=== PATIENT | male | born 1960 | race Caucasian/White ===

== ENCOUNTER 2021-01-09 08:06 | Outpatient (CLI) | payer SELFPAY ==
--- NOTE | 2021-01-09 08:00 | RT.EKG_ITS ---
APPROVED REPORT Exam: Resting ECG Reason for Exam: af Patient Location: O HR:105 bpm ECG Measurements Heart Rate 105 AXIS MN [id number] P [id number] QRSd 91 QRS 25 QT 332 T 54 QTc 439 Conclusion Atrial fibrillation...V-rate 86-132, irreg A-activity Borderline low voltage, extremity leads...all extremity leads <0.6mV
== END 2021-01-09 08:07 | disposition home or self-care (01) ==
LOC: DI.CARD 08:07
PROVIDERS: Visit Provider Internal Medicine Cardiovascular Disease
DX: I48.20 Chronic atrial fibrillation, unspecified (principal)
CPT/HCPCS: 93010

== ENCOUNTER 2021-01-23 00:38 | Outpatient (CLI) | payer BC, SELFPAY ==
--- NOTE | 2021-01-23 | DI.MRI_ITS ---
Exam(s) MR LUMBAR SPINE WO EXAM: MR LUMBAR SPINE WO CLINICAL HISTORY: LUMBAR STENOSIS WITHOUT NEUROGENIC CLAUDICATION,M49.061. TECHNIQUE: Multiplanar multisequence MRI of the Lumbar spine was performed. COMPARISON: There are no plain films available at the time of this MRI interpretation. There may be transitional anatomy here. FINDINGS: Conus medullaris is at normal level. There is no evidence of conus mass nor subjacent clumping of in trathecal nerve roots to suggest arachnoiditis. The distal thecal sac appears unremarkable.There is no evidence of Tarlov intrasacral cysts nor other significant findings within the sacral canal Bones:There are no fractures nor ominous osseous lesions in the lumbar vertebral bodies and visualize d sacrum. There are 2 intraosseous hemangiomas in the L1 vertebral body, the larger of the 2 measuri ng 11 x 10 millimeters and located posteriorly. There are no ominous osseous lesions. With respect to the individual levels... T12-L1: Unremarkable L1-2: Anterior osseous lipping. Normal disc height and signal. No disc herniation nor central canal stenosis.No foraminal stenosis L2-3: Anterior osseous lipping. Normal disc height and signal. No disc herniation nor central canal stenosis.No foraminal stenosis.No facet arthropathy. L3-4: Normal disc height. No disc herniation or central canal stenosis.No foraminal stenosis.No face t arthropathy. L4-5: Normal disc height and hydration signal. No disc herniation. No canal stenosis. No significa nt foraminal stenosis. No significant facet arthropathy. L5-S1: Mild decreased disc height and signal. There is relatively symmetrical posterior annular bulg ing at this level. No prominent disc herniation or central canal stenosis. No significant foraminal stenosis. There are mild degenerative changes in the facet joints, right more than left. No ligame ntum flavum hypertrophy. Soft tissues: paraspinal soft tissues appear unremarkable. IMPRESSION: 1. At L5-S1 level there is mild disc height loss and relatively symmetrical posterior annular bulging . There is no dominant disc herniation at this level nor central spinal canal stenosis nor foraminal stenosis. Some degenerative changes noted in the facet joints at this level, slightly more so on t he right side. 2. No other significant disc findings. No central nor foraminal stenosis. 3. Two small benign meningiomas are noted in the L1 vertebral body. DATA REPOSITORY:
--- OUTSIDE RECORDS SUMMARY | 2021-01-23 00:42 | XMS_ITS ---
:1960 Author Care Team Providers Name Role Phone MERT ESPINOZA MD General Surgeon [phone] TAWNYA SARMIENTO MD Primary Care Provider [phone] JOE GRIMES [employer] [phone] ALHAJI BARNES [employer] Delivery Checker [phone] Allergies Code Code System Name Reaction Severity Status Onset 67009 RxNorm Sulfamethoxazole Flushing ? Active ? Itching ? Active ? 28003 RxNorm Terbinafine Itching ? Active ? Medications Name Status Start Date Stop Date ? ? 5-HTP 100 mg capsule Completed 12/29/2012 12/29/2012 2 (two) Capsule: at bedtime amoxicillin 875 mg-potassium Completed ? clavulanate 125 mg tablet buspirone 5 mg tablet Active ? Not availa ble cephalexin 500 mg capsule Completed ? 2017 citalopram 10 mg tablet Completed 08/23/2016 02/14/20 17 1 (one) Tablet: daily citalopram 20 mg tablet Completed ? 12/18/19 18 clobetasol 0.05 % topical Active ? Not av ailable cream clonazepam 1 mg tablet Completed 08/02/2015 7 1/2-1 Tablet: Twice daily as needed cyclobenzaprine 10 mg tablet Active ? Not available duloxetine 60 mg Active ? Not available capsule,delayed release etodolac 500 mg tablet Active ? Not avail able fluoxetine 20 mg tablet Completed 02/22/2015 02/23/20 15 1 (one) Tablet: takes only a few times per week gabapentin 300 mg capsule Active ? Not av ailable itraconazole 100 mg capsule Active ? Not available Jublia 10 % topical solution Active ? Not available with applicator magnesium citrate 100 mg tablet Completed 04/13/2013 04/13/2013 1 Tablet: qd - daily multivitamin capsule Completed 04/13/2013 01/12/2016 1 (one) Tablet: daily mupirocin 2 % topical ointment Active ? N ot available nortriptyline 10 mg capsule Active ? Not available omega 3s 300 eh-xhd-bot-fish oil 1,000 mg capsule,delayed re lease Completed 10/07/2014 10/07/2014 3 (three) Capsule: daily prednisone 50 mg tablet Completed 12/18/2012 12/19/19 13 1 (one) Tablet: daily silver sulfadiazine 1 % Completed ? 02/11/20 18 topical cream sulfamethoxazole 800 Completed ? 10/29/2017 mg-trimethoprim 160 mg tablet terbinafine HCl 250 mg tablet Completed ? trazodone 50 mg tablet Completed 01/08/2013 3 1 Tablet: at bedtime venlafaxine ER 37.5 mg capsule,extended release 24 hr Completed 01/30/2013 01/30/2013 1 Capsule ER 24HR: daily Viagra 50 mg tablet Completed 09/13/2015 01/12/2016 1 (one) Tablet: 1/2 hr to 4 hr prior to intercourse Vitamins B Complex tablet Completed 04/13/20132013 1 Tablet: daily Wellbutrin XL 150 mg 24 hr tablet, extended release Completed 02/09/2013 02/09/2013 1 Tablet ER 24HR: daily zolpidem 10 mg tablet Active ? Not availa ble Problems Name Status Onset Date Source ? Onychomycosis of Toenails Active 09/18/2017 ? Ingrowing Toenail Active 09/18/2017 ? Chronic Low Back Pain Active 03/18/2018 ? Altered Bowel Function Active 04/05/2018 ? Overweight Unknown ? History Generalized Anxiety Disorder Active ? His tory Depressive Disorder Active ? History Insomnia Active ? History Hearing Loss of Right Ear Active ? Histor y Hip Pain Active ? History Low Back Pain Unknown ? History Sciatica Active ? History Backache Unknown ? History Plantar Fascial Fibromatosis Active ? His tory Lack of Energy Active ? History Dysphagia Active ? History Reduced Libido Active ? History Active Immunization Unknown ? History Administration of Diphtheria and Unknown ? History Tetanus Vaccine Adult Health Examination Active ? History At Risk - Finding Unknown ? History Otalgia of Right Ear Unknown ? History Impotence of Organic Origin Active ? Hist ory Long-term Current Use of Drug Therapy Unknown ? History Procedure by Method Unknown ? History Procedures Date Name Performed by ? 04/16/2018 Colonoscopy Information not avai lable Notes: normal-f/u 10 years 02/25/1989 Vasectomy Information not avai lable Results Lab Results Date Name Specimen Result Interpretation Description Value Range Status Address ? 10/29/2018 Thyroglobulin Ab, S - Thyroglobulin <1.8 < 4.0 Final [place] Serum Antibody, S IU/mL IU/mL [facility] L ab (Internal) : [address] ? ? S High Thyroglobulin, 8.4 ? Final N orth Tumor Marker, S NG/mL [facility] L ab (Internal) : [address] ? ? S - Thyroglobulin see ? Final No rth Interpretation below [facility] L ab (Internal) : [address] 10/29/2018 Immunofixation + S - Total Protein 6.3 6. 3-8. Final [place] Protein g/dL 2 g/dL [facility] Electrophoresis [facility] Lab Free Light (Inter nal): Chains, Serum [address] ? ? S - Albumin 63.4 % 55.8-6 Final [place] 6.1 % [facility] L ab (Internal) : [address] ? ? S - Alpha 1 3.4 % 2.9-4. Final [place] 9 % [facility] L ab (Internal) : [address] ? ? S - Alpha 2 8.0 % 7.1-11 Final [place] .8 % [facility] L ab (Internal) : [address] ? ? S - Beta 11.4 % 8.4-13 Final [place] .1 % [facility] L ab (Internal) : [address] ? ? S - Gamma 13.8 % 11.1-1 Final [place] 8.8 % [facility] ab (Internal) : [address] ? ? S - Comments see ? Final [place] below [facility] L ab (Internal) : [address] ? ? S - Immunotyping, see ? Final No rth Serum below [facility] L ab (Internal) : [address] 10/29/2018 PSA, Serum or S - PSA, Total 0.5 0.0-4. F inal [place] Plasma NG/mL 0 [facility] NG/mL Hospital L ab (Internal) : [address] 10/29/2018 CBC W/ Auto Diff BLD - Wbc 6.1 5.0-10 Fin al [place] 10*3/u .0 [facility] L 10*3/u Hospital L ab L (Internal) : [address] ? ? BLD Low Rbc 4.43 4.60-6 Final [place] 10*6/u .00 [facility] L 10*6/u Hospital L ab L (Internal) : [address] ? ? BLD Low Hgb 13.9 14.0-1 Final [place] g/dL 8.0 [facility] g/dL Hospital L ab (Internal) : [address] ? ? BLD Low Hct 37.6 % 41.0-5 Final [place] 1.0 % [facility] (Internal) : [address] ? ? BLD - Mcv 84.9 80.0-9 Final [place] fL 6.0 fL [facility] (Internal) : [address] dionicio ? ? BLD - Mch 31.4 26.0-3 Final [place] pg 2.0 pg [facility] (Internal) : [address] ? ? BLD High Mchc 37.0 31.0-3 Final [place] g/dL 5.0 Country g/dL Hospital L ab (Internal) : [address] ? ? BLD - Rdw 11.6 % 11.5-1 Final [place] 4.5 % [facility] (Internal) : [address] ? ? BLD - Plt 194 130-45 Final [place] 10*3/u 0 [facility] L 10*3/u Hospital L ab L (Internal) : [address] ? ? BLD - Anc 2.66 ? Final [place] 10*3/u [facility] L [facility] L ab (Internal) : [address] ? ? BLD - Neutro 43.5 % 40.0-7 Final [place] 5.0 % [facility] (Internal) : [address] ? ? BLD - Lymph 40.7 % 20.0-5 Final [place] 0.0 % [facility] (Internal) : [address] ? ? BLD High Bland 11.3 % 2.0-10 Final [place] .0 % [facility] (Internal) : [address] ? ? BLD - Eos 3.3 % 1.0-6. Final [place] 0 % [facility] (Internal) : [address] ? ? BLD - Baso 1.0 % 0.0-1. Final [place] 0 % [facility] (Internal) : [address] ? ? BLD - Ig 0.2 % 0.0-0. Final [place] 9 % [facility] (Internal) : [address] 10/23/2018 PSA, Serum or S - PSA, Total 0.4 0.0-4. F inal [place] Plasma NG/mL 0 [facility] NG/mL Hospital L ab (Internal) : [address] [place] 10/23/2018 CBC W/ Auto Diff BLD - Wbc 6.0 5.0-10 Fin al [place] 10*3/u .0 [facility] L 10*3/u Hospital L ab L (Internal) : [address] ? ? BLD Low Rbc 4.39 4.60-6 [facility] 10*6/u .00 [facility] L 10*6/u Hospital L ab L (Internal) : [address] ? ? BLD Low Hgb 13.7 14.0-1 Final [place] g/dL 8.0 [facility] g/dL Hospital L ab (Internal) : [address] ? ? BLD Low Hct 37.6 % 41.0-5 Final [place] 1.0 % [facility] L ab (Internal) : [address] ? ? BLD - Mcv 85.6 80.0-9 Final [place] fL 6.0 fL [facility] L [facility] (Internal) : [address] ? ? BLD - Mch 31.2 26.0-3 Final [place] pg 2.0 pg [facility] (Internal) : [address] ? ? BLD High Mchc 36.4 31.0-3 Final [place] g/dL 5.0 [facility] g/dL Hospital L ab (Internal) : [address] ? ? BLD - Rdw 11.7 % 11.5-1 Final [place] 4.5 % [facility] (Internal) : [address] ? ? BLD - Plt 205 130-45 Final [place] 10*3/u 0 [facility] L 10*3/u Hospital L ab L (Internal) : [address] ? ? BLD - Anc 2.82 ? Final [place] 10*3/u [facility] L [facility] L ab (Internal) : [address] ? ? BLD - Neutro 47.1 % 40.0-7 Final [place] 5.0 % [facility] (Internal) : [address] ? ? BLD - Lymph 36.4 % 20.0-5 Final [place] 0.0 % [facility] (Internal) : [address] ? ? BLD High Bland 11.9 % 2.0-10 Final [place] .0 % [facility] (Internal) : [address] ? ? BLD - Eos 3.3 % 1.0-6. Final [place] 0 % [facility] (Internal) : [address] ? ? BLD - Baso 1.0 % 0.0-1. Final [place] 0 % [facility] (Internal) : [address] ? ? BLD - Ig 0.3 % 0.0-0. Final [place] 9 % [facility] (Internal) : [address] 10/21/2018 CMP, Serum or S High g/r 120 74-106 Final [place] Plasma mg/dL mg/dL [facility] (Internal) : [address] ? ? S - Bun 13 9-20 Final [place] mg/dL mg/dL [facility] (Internal) : [address] ? ? S Low Crea 0.60 0.66-1 Final [place] mg/dL .25 [facility] mg/dL Hospital L ab (Internal) : [address] ? ? S - Ca 8.7 8.4-10 Final [place] mg/dL .2 [facility] mg/dL [facility] L ab (Internal) : [address] ? ? S Low Na 130 137-14 Final [place] mmol/L 5 [facility] mmol/L Hospital L ab (Internal) : [address] ? ? S - K 4.1 3.5-5. Final [place] mmol/L 1 [facility] mmol/L Hospital L ab (Internal) : [address] ? ? S Low Cl 97 98-107 Final [place] mmol/L mmol/L [facility] (Internal) : [address] ? ? S - Tco2 24.0 22.0-3 Final [place] mmol/L 0.0 [facility] mmol/L Hospital L ab (Internal) : [address] ? ? S - Tp 6.7 6.3-8. Final [place] g/dL 2 g/dL [facility] (Internal) : [address] ? ? S - Alb 4.0 3.5-5. Final [place] g/dL 0 g/dL [facility] (Internal) : [address] ? ? S - Tbil 0.3 0.2-1. Final [place] mg/dL 3 [facility] mg/dL Hospital L ab (Internal) : [address] ? ? S - Alp 69 U/L 38-126 Final [place] U/L [facility] (Internal) : [address] ? ? S - Alt (Sgpt) 31 U/L 21-72 Final [place] U/L [facility] (Internal) : [address] ? ? S - Ast (Sgot) 25 U/L 17-59 Final [place] U/L [facility] (Internal) : [address] 09/27/2018 Lipid Panel, S - Chol 141 50-200 Final [place] Serum mg/dL mg/dL [facility] (Internal) : [address] ? ? S - Trig 40 10-150 Final [place] mg/dL mg/dL [facility] (Internal) : [address] ? ? S High Hdl 80 40-60 Final [place] mg/dL mg/dL [facility] (Internal) : [address] ? ? S - Ldl 53 0-130 Final [place] mg/dL mg/dL [facility] (Internal) : [address] 02/10/2018 Glucose, Serum or S - g/r 97 74-106 Fi nal [place] Plasma mg/dL mg/dL [facility] (Internal) : [address] 02/10/2018 CBC W/ Auto Diff BLD - Wbc 5.8 5.0-10 Fin al [place] 10*3/u .0 [facility] L 10*3/u Hospital L ab L (Internal) : [address] ? ? BLD Low Rbc 4.55 4.60-6 Final [place] 10*6/u .00 [facility] L 10*6/u Hospital L ab L (Internal) : [address] ? ? BLD - Hgb 14.2 14.0-1 Final [place] g/dL 8.0 [facility] g/dL Hospital L ab (Internal) : [address] ? ? BLD Low Hct 40.2 % 41.0-5 Final [place] 1.0 % [facility] (Internal) : [address] ? ? BLD - Mcv 88.4 80.0-9 Final [place] fL 6.0 fL [facility] (Internal) : [address] ? ? BLD - Mch 31.2 26.0-3 Final [place] pg 2.0 pg [facility] (Internal) : [address] ? ? BLD High Mchc 35.3 31.0-3 Final [place] g/dL 5.0 [facility] g/dL Hospital L ab (Internal) : [address] ? ? BLD - Rdw 11.9 % 11.5-1 Final [place] 4.5 % [facility] (Internal) : [address] ? ? BLD - Plt 210 130-45 Final [place] 10*3/u 0 [facility] L 10*3/u Hospital L ab L (Internal) : [address] ? ? BLD - Anc 3.31 ? Final [place] 10*3/u [facility] L [facility] ab (Internal) : [address] ? ? BLD - Neutro 57.0 % 40.0-7 Final [place] 5.0 % [facility] (Internal) : [address] ? ? BLD - Lymph 30.1 % 20.0-5 Final [place] 0.0 % [facility] (Internal) : [address] ? ? BLD High Bland 10.3 % 2.0-10 Final [place] .0 % [facility] (Internal) : [address] ? ? BLD - Eos 1.5 % 1.0-6. Final [place] 0 % [facility] (Internal) : [address] ? ? BLD - Baso 0.9 % 0.0-1. Final [place] 0 % [facility] (Internal) : [address] [place] ? ? BLD - Ig 0.2 % 0.0-0. Final [place] 9 % [facility] (Internal) : [address] , [place] Past Encounters 02/29/2020 Pain in Right Lower Limb; Strain of Musc le And/or Tendon of Lower Leg; Injury of Achilles Tendon Kevan Jessica, PT: [address] [phone], Ph. 01/28/2020 Pain in Right Lower Limb; Strain of Musc le And/or Tendon of Lower Leg; Injury of Achilles Tendon Kevan Jessica, PT: [address] [phone], Ph. 01/11/2020 Pain in Right Lower Limb; Strain of Musc le And/or Tendon of Lower Leg; Injury of Achilles Tendon Kevan Jessica, PT: [address] [place] [phone], Ph. 01/04/2020 Pain in Right Lower Limb; Strain of Musc le And/or Tendon of Lower Leg; Injury of Achilles Tendon Kevan Jessica, PT: [address] [phone], Ph. 12/28/2019 Pain in Right Lower Limb; Strain of Musc le And/or Tendon of Lower Leg; Injury of Achilles Tendon Kevan Jessica, PT: [address] [place] [phone], Ph. 12/21/2019 Pain in Right Lower Limb; Strain of Musc le And/or Tendon of Lower Leg; Injury of Achilles Tendon Kevan Jessica, PT: [address] [phone], Ph. 12/14/2019 Pain in Right Lower Limb; Strain of Musc le And/or Tendon of Lower Leg; Injury of Achilles Tendon Kevan Jessica, PT: [address] [place] [phone], Ph. 12/07/2019 Pain in Right Lower Limb; Strain of Musc le And/or Tendon of Lower Leg; Injury of Achilles Tendon Kevan Jessica, PT: [address] [place] [phone], Ph. 11/30/2019 Pain in Right Lower Limb; Strain of Musc le And/or Tendon of Lower Leg; Injury of Achilles Tendon Kevan Jessica, PT: [address] [place] [phone], Ph. Social History Tobacco Smoking Status Former Smoker Notes: quit in 1981, started at age 14, approx. 0.5ppd Vaccine List Vaccine Type COVID-19 vaccine, vector-nr, rS-Ad26, PF , 0.5 mL (Gro) 05/25/2020 Tdap 10/27/2011 Plan of Care Reminders Provider Appointments None ? ? recorded. Lab None ? ? recorded. Referral None ? ? recorded. Procedures None ? ? recorded. Surgeries None ? ? recorded. Imaging None ? ? recorded. Vitals 08/29/2018 02:20PM Acute 20 Height Weight BMI Blood Pressure 170.18 cm 71.4 kg 24.7 kg/m2 122/80 mm[Hg] 08/04/2018 05:00PM Acute 20 Height Weight BMI Blood Pressure 170.18 cm 73.03 kg 25.2 kg/m2 129/78 mm[Hg] 06/03/2018 09:40AM CPE 40 Height Weight BMI Blood Pressure 170.18 cm 72.83 kg 25.1 kg/m2 124/70 mm[Hg] 04/04/2018 03:00PM Any 40 Height Weight BMI Blood Pressure 170.18 cm 73.03 kg 25.2 kg/m2 100/60 mm[Hg] 03/18/2018 09:20AM Any 40 Height Weight BMI Blood Pressure 170.18 cm 73.48 kg 25.4 kg/m2 118/72 mm[Hg] 02/10/2018 12:40PM Acute 40 Height Weight BMI Blood Pressure 170.18 cm 74.12 kg 25.6 kg/m2 122/84 mm[Hg] 12/17/2017 04:20PM Follow Up 40 Height Weight BMI Blood Pressure 170.18 cm 76.88 kg 26.5 kg/m2 138/84 mm[Hg] 10/29/2017 05:00PM Follow Up 20 Height Weight BMI Blood Pressure 170.18 cm 74.93 kg 25.9 kg/m2 122/84 mm[Hg] 09/18/2017 05:20PM Acute 40 Height Weight BMI Blood Pressure 170.18 cm 77.11 kg 26.6 kg/m2 118/68 mm[Hg] 07/16/2017 11:40AM Acute 20 Height Weight BMI Blood Pressure 170.18 cm 74.53 kg 25.7 kg/m2 118/72 mm[Hg] 02/13/2017 Weight Blood Pressure 74.84 kg 130/70 mm[Hg] 08/23/2016 Weight Blood Pressure 75.7 kg (1) 118/72 mm[Hg] (2) 122/76 mm[Hg] 07/17/2016 Weight Blood Pressure 77.34 kg 130/80 mm[Hg] 02/13/2016 Height Weight Blood Pressure 168.28 cm 78.16 kg 126/72 mm[Hg] 01/12/2016 Weight Blood Pressure 79.33 kg 120/80 mm[Hg] 09/13/2015 Weight Blood Pressure 74.16 kg 116/72 mm[Hg] 08/02/2015 Height Weight Blood Pressure 172.09 cm 75.21 kg 130/76 mm[Hg] 07/05/2015 Weight Blood Pressure 77.93 kg 130/80 mm[Hg] 02/22/2015 Height Weight Blood Pressure 172.09 cm 78.2 kg 120/80 mm[Hg] 01/18/2015 Height Weight Blood Pressure 167.64 cm 76.93 kg 136/80 mm[Hg] 12/21/2014 Weight Blood Pressure 74.16 kg 128/72 mm[Hg] 11/02/2014 Height Weight Blood Pressure 167.64 cm 73.6 kg 126/74 mm[Hg] 10/07/2014 Height Weight Blood Pressure 167.64 cm 76.61 kg 138/76 mm[Hg] 03/09/2014 Weight Blood Pressure 75.84 kg 120/76 mm[Hg] 04/13/2013 Weight Blood Pressure 75.75 kg 136/80 mm[Hg] 02/09/2013 Height Weight Blood Pressure 168.28 cm 74.48 kg 126/70 mm[Hg] 01/30/2013 Weight Blood Pressure 73.66 kg 114/62 mm[Hg] 01/20/2013 Height Weight Blood Pressure 169.55 cm 74.43 kg 122/66 mm[Hg] 01/08/2013 Weight Blood Pressure 73.53 kg 128/68 mm[Hg] 12/29/2012 Weight Blood Pressure 75.84 kg 130/82 mm[Hg] 12/25/2012 Weight Blood Pressure 71.99 kg 126/78 mm[Hg] 12/18/2012 Height Weight Blood Pressure 168.28 cm 71.99 kg 112/80 mm[Hg] 03/28/2005 Weight Blood Pressure 75.3 kg 118/84 mm[Hg] 10/16/2004 Weight Blood Pressure 75.3 kg 118/88 mm[Hg] 02/14/2004 Height Weight Blood Pressure 169.55 cm 80.51 kg 124/76 mm[Hg]
== END 2021-01-23 00:58 ==
PROVIDERS: PCP Internal Medicine; Visit Provider Neurological Surgery
DX: M48.07 Spinal stenosis, lumbosacral region (principal)
CPT/HCPCS: 72148

== ENCOUNTER 2021-06-17 11:05 | Emergency (ER) | payer MEDICAID, SELFPAY ==
[2021-06-17 11:08] VITALS: BP 154/92; PULSE 96; RESP 16; TEMP 36.8; O2SAT 100
--- NOTE | 2021-06-17 11:15 | DI.CT_ITS ---
Exam(s) CT HEAD WO EXAM: CT HEAD WO CLINICAL HISTORY: fall on apixaban. TECHNIQUE: Imaging Protocol: Axial computed tomography images with coronal and sagittal reformatted images were created and reviewed COMPARISON: CT CT PELVIC WO from 06/17/2021 FINDINGS: The ventricular system is normal in appearance. No evidence of acute intracranial hemorrhage, mass effect, or midline shift. The orbital structures are unremarkable. The temporal bone structures appear intact. Calvarium: Normal. Visualized Paranasal sinuses/Mastoids: Clear. IMPRESSION: Normal cranial CT. RADIATION DOSE DELIVERED: 1257.25 mGy.cm Total DLP 1257.25 mGy.cm Total DLP !Error CTDIvol DATA REPOSITORY: All CT scans at this facility are submitted to the National Radiology Data Registry (NRDR) Dose Index Registry (DIR) with the [employer] (A[employer]). RADIATION OPTIMIZATION: All CT scans at this facility use at least one of these dose optimization te chniques: automated exposure control; mA and/or kV adjustment per patient size (includes targeted exa ms where dose is matched to clinical indication); or iterative reconstruction.
--- NOTE | 2021-06-17 11:25 | DI.CT_ITS ---
Exam(s) CT PELVIC WO EXAM: CT PELVIC WO CLINICAL HISTORY: Fall right buttock and posterior pelvis pain TECHNIQUE: COMPARISON: No exams were available for comparison FINDINGS: CT examination of pelvis was performed without contrast administration. There is no free pelvic flui d. Urinary bladder appears intact. Visualized bowel appears intact. Normal appendix. Inferior mehreen es of the kidneys are visualized and appear normal. No soft tissue hematoma visible. There is no evidence of a hip or pelvis fracture. IMPRESSION: No evidence of acute injury. RADIATION DOSE DELIVERED: Total DLP !Error CTDIvol RADIATION OPTIMIZATION: All CT scans at this facility use at least one of these dose optimization te chniques: automated exposure control; mA and/or kV adjustment per patient size (includes targeted exa ms where dose is matched to clinical indication); or iterative reconstruction.
--- NOTE | 2021-06-17 11:38 | ED.GENADUL_ITS ---
Discharge Plan Disposition Patient Disposition: HOME Condition: Stable Discharge Details Clinical Impression: Contusion of leg, right, multiple sites Primary Care Provider: Rubi Gonzalez ED Provider: Abran Starr Home Meds and New Rx's Prescriptions: Continued duloxetine [Cymbalta] 60 mg capsule,delayed release(DR/EC) 60 mg PO DAILY 0RF gabapentin 300 mg capsule 300 mg PO TID 0RF cyclobenzaprine 10 mg tablet 10 mg PO TID PRN0RF Eliquis 5 mg tablet 5 mg PO BID Qty: 60 7RF Discharge Instructions Instructions: Contusion in Adults (ED) Additional Instructions: Please apply warm compresses to area of discomfort and you may take acetaminoph en as needed for pain control. Please take as directed on packaging. You may continue to perform weightbearing actions as tolerated and if you notice any new or significant worsening of symptoms please return immediately to the emergency department for reassessment If not improving over the next week please follow-up with primary care provider for reassessment Referrals: Rubi Gonzalez [Primary Care Provider] - 1 week Medical Decision Making Patient presenting to the emergency department for chief complaint of fall with right buttock and posterior pelvis pain. Does state that was an extremely hard fall and did hit his head but no loss of consciousness. Patient does have history of A. fib and is on apixaban. Physical exam shows tenderness to right buttock and posterior sacrum and mild tenderness to lateral hip. Exam is otherwise unremarkable. No significant or severe swelling no obvious ecchymosis, no signs of compartment syndrome/worrisome hematoma. Given that patient is anticoagulated we will plan on performing CT imaging of the head along with pelvis. Patient offered acetaminophen but is stating he does not need any pain medication Review of CT imaging shows no acute findings, no fracture, no obvious hematoma. Review of CT head also shows no acute worrisome findings. Patient recommended to use acetaminophen and warm compresses. HPI General Mode of arrival: ambulatory . Date/Time Provider Initiated Documentation: 06/17/21 11:06 . Limitations to Documentation: no limitations . Information obtained by: patient, RN notes reviewed and old records reviewed . History of Present Illness 61 year old M presents to the emergency department with the chief complaint of fall with right hip/buttock pain, described as severe, with intensity rated at 10. Quality is described as aching and sharp, and is localized to the pelvis and right. Patient reports no radiation. Patient started experiencing this day(s) (1) and it has been constant. improves with No relieving factors improve symptom(s), Movement worsens symptoms . Patient notes no other symptoms.. Patient did receive the following treatments prior to arrival, none Related Data Home Medications Medication Instructions Recorded Confirmed cyclobenzaprine 10 mg tablet 10 mg PO TID PRN 01/09/21 02/21/21 duloxetine 60 mg capsule,delayed 60 mg PO DAILY 01/09/21 02/21/21 release (Cymbalta) gabapentin 300 mg capsule 300 mg PO TID 01/09/21 02/21/21 apixaban 5 mg tablet (Eliquis) 5 mg PO BID #60 tab 02/14/21 06/17/21 Previous Rx's Medication Instructions Recorded apixaban 5 mg tablet (Eliquis) 5 mg PO BID #60 tab 02/14/21 Allergies Allergy/AdvReac Type Severity Reaction Status Date / Time No Known Allergies Allergy Unverified 06/17/21 11:12 General Stated Complaint: Nk/Back Pain JEANE: 4 Review of Systems Narrative: 8 systems reviewed and are unremarkable except for noted below Constitutional Constitutional: Denies frequent falls and Denies headache(s) ENT Ears, Nose, Mouth, and Throat: Denies headache(s) Cardiovascular Cardiovascular: Denies syncope Musculoskeletal Musculoskeletal: Reports as per HPI, Denies back pain, Reports limited range of motion, Denies loss of height, Denies numbness and Denies radiating pain into limb Neurologic Neurologic: Denies syncope, Denies frequent falls, Denies headache(s), Denies numbness and Denies paresthesias PFSH All Active Problems (Updated 06/17/21 @ 12:36 by Abran Starr NP) Contusion of leg, right, multiple sites (Acute) Atrial fibrillation (Chronic) Social History Smoking/Tobacco Use Status: Former Tobacco Use Smoking risk assessment performed?: Yes Alcohol Intake: current Alcohol Intake frequency: a few times a week Drug use: Never Substance use type: does not use Household members: spouse What is your relationship status?: Panel score (0-1 are the most socially isolated patients): 1 What type of physical activity do you participate in: bicycling Duration: 60-90 minutes/day Frequency: 3-4 times per week Do you feel safe at home: Yes Do you feel safe in your relationship?: Yes Exam Const General: cooperative, no acute distress and not ill appearing Orientation: alert, awake and oriented x3 HENMT Mouth: moist mucous membranes Resp Effort & Inspection: normal respiratory effort, able to speak in complete sentences and no respiratory distress Cardio Rate: regular rate Rhythm: abnormal rhythm irregularly irregular Back/Spine/Pelvis Back: No ecchymosis and No back tenderness Thoracic/Lumbar Spine: No paraspinal tenderness, No thoracic spinal tenderness and No lumbar spinal tenderness Pelvis: no pain with anterior-posterior compression, no pain with lateral compression, no buttock ecchymosis, buttock tenderness on the right, no unilateral elevation of iliac crest and no tenderness over symphysis pubis Sacrum: tenderness Coccyx: tenderness Skin General skin exam: no rashes or lesions noted Neuro General: patient alert, patient awake, patient oriented x3, tone normal, moves all extremities and no focal motor deficits Cognition: normal cognition Gait: antalgic Sensory Exam: no sensory deficits noted Course Vital Signs Vital signs: Vital Signs Temperature 36.8 C 06/17/21 11:08 Pulse 96 H 06/17/21 11:08 Respiratory Rate 16 06/17/21 11:08 Blood Pressure 154/92 H 06/17/21 11:08 Pulse Oximetry 100 06/17/21 11:08 Temperature 36.8 C 06/17/21 11:08 Temperature Source Skin 06/17/21 11:08 Pulse 96 H 06/17/21 11:08 Respiratory Rate 16 06/17/21 11:08 Blood Pressure 154/92 H 06/17/21 11:08 Blood Pressure Position Standing 06/17/21 11:08 Pulse Oximetry 100 06/17/21 11:08 Oxygen Delivery Method Room Air 06/17/21 11:08 Oxygen Flow Rate 0 06/17/21 11:08 Pain Level 10 06/17/21 11:08 Comment 06/17/21 11:08 PAWSS Have you Been Recently Intoxicated or Drunk Within the Last 30 days?: No Have you Ever Experienced Previous Episodes of Alcohol Withdrawal?: No Have you ever Experienced Withdrawal Seizures?: No Have you ever Experienced Delirium Tremens(DT)s?: No Have you ever undergone Alcohol Rehabilitation Treatment (i.e, inpt ot outpatient treatment programs)?: No Have you ever Experienced Blackouts?: No Have you ever Combined Alcohol with other Downers within the last 90 days?: No Have you ever Combined Alcohol with any other Substance of Abuse during the last 90 days?: No Positive Blood Alcohol level on Presentation? [PCS.BAL]: No Evidence of Increased Autonomic Activity (i.e. HR>120, tremor, sweating, agitation, nausea)?: No Result: 0
--- NOTE | 2021-06-17 12:17 | DI.VRAD_ITS ---
PROCEDURE INFORMATION: Exam: CT Pelvis Without Contrast Exam date and time: 06/17/2021 11:42 AM Age: 61 years old Clinical indication: Injury or trauma; Blunt trauma (contusions or hematomas); Right; Hip and sacrum and coccyx; Injury date: This am; Injury details: Fall. RT hip and buttock pain. TECHNIQUE: Imaging protocol: Computed tomography images of the pelvis without contrast. Radiation optimization: All CT scans at this facility use at least one of these dose optimization techniques: automated exposure control; mA and/or kV adjustment per patient size (includes targeted exams where dose is matched to clinical indication); or iterative reconstruction. COMPARISON: MR LUMBAR SPINE WO 23/01/2021 11:09 FINDINGS: Stomach and bowel: Visualized small bowel and colon are unremarkable. Appendix: No evidence of appendicitis. Intraperitoneal space: Unremarkable. No free air. No significant fluid collection. Lymph nodes: Unremarkable. No enlarged lymph nodes. Urinary bladder: Prostate bulges into the base of the bladder. Reproductive: Prostate gland is enlarged to 6.5 cm. The vasectomy clips are noted in the scrotum. Bones/joints: Unremarkable. No acute fracture. No dislocation. Soft tissues: Unremarkable. IMPRESSION: No evidence of acute trauma. Dictated and Authenticated by: Ar Sauceda MD. Ordering:MONROE Osullivan MD
--- NOTE | 2021-06-17 12:36 | DI.VRAD_ITS ---
PROCEDURE INFORMATION: Exam: CT Head Without Contrast Exam date and time: 06/17/2021 11:42 AM Age: 61 years old Clinical indication: Injury or trauma; Fall; Blunt trauma (contusions or hematomas); Consciousness not specified; Injury date: This am; Patient HX: PT is taking apixaban TECHNIQUE: Imaging protocol: Computed tomography of the head without contrast. Radiation optimization: All CT scans at this facility use at least one of these dose optimization techniques: automated exposure control; mA and/or kV adjustment per patient size (includes targeted exams where dose is matched to clinical indication); or iterative reconstruction. COMPARISON: No relevant prior studies available. FINDINGS: Brain: The ventricles and the cortical sulci are within normal limits for the patient's age. There is no evidence of acute hemorrhage, mass or shift. There is no evidence of an acute cortical or major vascular territory infarct. No abnormal extra-axial collections are identified. Cerebral ventricles: No significant ventricular enlargement/hydrocephalus. Paranasal sinuses: No significant sinus opacification or fluid level Mastoid air cells: No significant mastoid opacification Bones/joints: There is no acute bony abnormality Soft tissues: Subcutaneous soft tissues are unremarkable IMPRESSION: No acute findings. Dictated and Authenticated by: Na James MD. Ordering:MONROE Osullivan MD
== END 2021-06-17 13:33 | disposition home or self-care (01) ==
PROVIDERS: Emergency Provider Nurse Practitioner Family; PCP Internal Medicine
DX: S70.01XA Contusion of right hip, initial encounter (principal); W00.0XXA Fall on same level due to ice and snow, initial encounter; I48.91 Unspecified atrial fibrillation; Z79.01 Long term (current) use of anticoagulants
CPT/HCPCS: 99284; 70450; 72192; 99282

== ENCOUNTER 2023-02-19 08:46 | Outpatient (CLI) | payer MEDICAID, SELFPAY ==
--- NOTE | 2023-02-19 08:45 | RT.EKG_ITS ---
APPROVED REPORT Exam: Resting ECG Reason for Exam: afib Patient Location: O HR:87 bpm ECG Measurements Heart Rate 87 AXIS NV [id number] P [id number] QRSd 88 QRS -4 QT 340 T 24 QTc 409 Conclusion Atrial fibrillation...V-rate 75- 87, irreg A-activity Baseline wander in lead(s) V4 I have reviewed and interpreted ECG and agree with software generated interpretation.
== END 2023-02-19 08:47 | disposition home or self-care (01) ==
LOC: DI.CARD 08:47
PROVIDERS: PCP Internal Medicine; Visit Provider Internal Medicine Interventional Cardiology
DX: I48.91 Unspecified atrial fibrillation (principal)
CPT/HCPCS: 93010

== ENCOUNTER → 2024-03-23 09:01 | Outpatient (BNVA) | payer MEDICARE, SELFPAY | PROVIDERS: PCP Internal Medicine; Referring Provider Internal Medicine; Visit Provider Registered Nurse | DX: I48.11 Longstanding persistent atrial fibrillation (principal) | CPT/HCPCS: 99214 ==